=== PATIENT | male | born 1970 | race Caucasian/White ===

== ENCOUNTER → 2018-03-16 | Outpatient (CLI) | payer OTHER ==
[~2018-03-16] MED LIST: OXYC-57 PO; TERB125G OR
--- NOTE | 2018-03-17 13:25 | PULMONARY FUNCTION TEST ---
CLINICAL DATA: A 47-year-old male with a height of 70 inches and a weight of 255 pounds, referred by Dr. White for shortness of breath. Spirometry pre-bronchodilator was performed. FINDINGS: Prebronchodilator spirometry demonstrates mild obstructive small airways disease. FVC is 110% of predicted. FEV1 is 93% of predicted. [id number] is 60% of predicted. FEV1/FVC ratio is 69% of predicted. IMPRESSION: Mild obstructive airways disease consistent with possible asthma. RECOMMENDATIONS: The patient may benefit from a trial of bronchodilator and/or inhaled steroids. Clinical correlation is needed.
== END | disposition home or self-care (01) ==
LOC: C.RC 11:20
PROVIDERS: ATTEND Family Medicine
DX: R06.02 Shortness of breath (principal)